=== PATIENT | male | born 1965 | race Caucasian/White ===

== ENCOUNTER 2019-06-23 13:49 | Outpatient (CLI) | payer BC, SELFPAY ==
--- NOTE | ~2019-06-23 | US_ITS ---
EXAMINATION: US art doppler w press [place] [facility] EXAM DATE: 06/23/2019 15:06 INDICATION: Bilateral foot pain. Diabetes. Foot ulceration. Tingling, numbness. TECHNIQUE: Segmental pressures and plethysmographic and Doppler waveforms of the brachial and lower e xtremity arteries were obtained. There is no prior study for comparison. FINDINGS: Right and left brachial artery pressures of 111 mm Hg and 110 mm Hg, respectively, are concordant (no rmal difference <= 30 mmHg). The right and left thigh-brachial pressure indices are 1.59, 1.41, resp ectively (normal > 1.2). RIGHT LEG: The ankle-brachial index (YELENA) is 1.19 (normal >= 0.9-1). The great toe-brachial index (TBI) is 1.05 (normal >= 0.65). The lower extremity ratios, segmental pressure gradients as follows; Proximal superficial femoral artery:- 1.59 (176 mmHg). Distal superficial femoral artery: ----- 1.65 (183 mmHg). Popliteal: 1.28 (142 mmHg). Dorsalis pedis: 1.12 (124 mmHg). Posterior tibial: 1.19 (132 mmHg). (Normal gradients <= 20-30 mmHg between adjacent levels on the same leg or the same levels on the two legs). Arterial waveforms are biphasic. LEFT LEG: The ankle-brachial index (YELENA) is 1.32 (normal >= 0.9-1). The great toe-brachial index (TBI) is 0.78 (normal >= 0.65). The lower extremity ratios, segmental pressure gradients as follows; Proximal superficial femoral artery:- 1.41 (156 mmHg). Distal superficial femoral artery: ----- 1.56 (173 mmHg). Popliteal: 1.54 (171 mmHg). Dorsalis pedis: 1.14 (126 mmHg). Posterior tibial: 1.32 (146 mmHg). (Normal gradients <= 20-30 mmHg between adjacent levels on the same leg or the same levels on the two legs). Arterial waveforms are biphasic. IMPRESSION: 1. Right ankle-brachial index 1.19, normal. 2. Left ankle-brachial index 1.32, normal. 3. Segmental pressures as above. Reviewed, dictated and finalized at location A.
== END 2019-06-23 13:50 | disposition home or self-care (01) ==
PROVIDERS: Visit Provider Internal Medicine
DX: M79.672 Pain in left foot (principal); M79.671 Pain in right foot
CPT/HCPCS: 93923

== ENCOUNTER 2019-12-10 08:00 | Outpatient (RCR) | payer BC, SELFPAY ==
--- NOTE | 2019-11-03 10:00 | PTOPEVAL ---
INITIAL PHYSICAL THERAPY EVALUATION and PLAN OF CARE Thank you for referring Rajan Santoro to [facility]. Romulo will be seen in PT 2x/wk x 6 wks. Please review, sign, date and return this plan of care SUSAN. I agree with and certify that the following plan of care is medically necessary. Referring Physician Date Admitting Provider: Attending Provider: PHYSICIAN NOT ON STAFF Referring Provider: *PT Outpatient Evaluation Start: 11/03/19 08:19 Freq: Status: Active Protocol: Document 11/03/19 08:10 GRIFFIN (Rec: 11/03/19 09:42 GRIFFIN [id number]) Therapy Assessment Status Assessment Status Assessment Status Evaluation Outpatient Past Medical History Past Medical History Source of Past Medical History Patient Neurological History Hx Migraine Yes Cardiovascular History Hx Hypercholesterolemia Yes Hx Hypertension Yes Respiratory History Hx Other Respiratory Disorders Yes: spring seasonal allergies Gastrointestinal History Hx Gastroesophageal Reflux Disease Yes Genitourinary History Hx Genitourinary Disorders No Significant History Musculoskeletal History Hx Arthritis Yes: bilat foot & ankle R>L, bilat thumbs & hands Hx Fractures Yes: multiple Hx Spinal Surgery Yes: laminectomy-lumbar spine Hx Other Musculoskeletal Disorders Yes: bilat carpal tunnel surger Endocrine History Hx Diabetes Yes Evaluation Information Problem Diagnosis OA R foot and ankle Onset at least 10 yrs ago, worse last 1 1/2 yrs Subjective Information Retired from [employer] end of Query Text:As Reported By Patient/ 2018 - always had to wear [employer] steel toe shoes - retired due to the status of the [employer] situation Increased pain mid/dorsal aspect of R foot, runs laterally, also at R [employer] MTP jt, up into ankle - will alter gait pattern in regards to this pain - then will cause plantarfascial pain as well as lateral foot pain. Used to perform [employer] - still performs but ~ 1 1/2 yr ago inability to balance on R foot with skills, unable to jump, run, put impact onto R foot. The R foot pain can wake him up or if foot is caught by
--- NOTE | 2019-11-16 08:42 | PCPTNOTE ---
Patient did not show up for scheduled appointment this date; called and left voicemail for reminder on next appointment.
--- NOTE | 2019-11-26 09:58 | PCPTNOTE ---
Patient did not show up for scheduled appointment this date.
--- NOTE | 2019-12-15 08:44 | PCPTNOTE ---
Patient did not show up for scheduled appointment this date. Today was his re-eval appointment. Will await to see if he reschedules this appointment.
--- NOTE | 2020-01-07 07:31 | PCPTNOTE ---
PHYSICAL THERAPY DISCHARGE NOTE Admitting Provider: Attending Provider: PHYSICIAN NOT ON STAFF Patient:Rajan Santoro Date of :1965 Romulo has not returned for any further treatments since 12/10/2019, therefore he will be discharged at this time. Romulo?s initial visit was on 11/03/2019 08:00 and he had a total of 9 visits. He did not show for his 12/15/2019 re-evaluation. The goals have been partially met. Increase mobility with tarsal bones and improved balance abilities were achieved, but pain levels did not decrease. Thank you for referring Romulo to [facility]. Please review, sign, date and return this discharge summary SUSAN. I have been updated about Romulo's current status and I agree with discharge from the above service at this time. Referring Physician Date
== END 2020-01-18 09:42 | disposition home or self-care (01) ==
LOC: ANHPT 08:00
DX: M19.071 Primary osteoarthritis, right ankle and foot (principal)
CPT/HCPCS: 97022; 97110; 97140; 97161

== ENCOUNTER 2021-02-10 16:30 | Emergency (ER) | payer BC, SELFPAY ==
[2021-02-10 16:41] VITALS: BP 119/89; PULSE 133; RESP 20; TEMP 36.6; O2SAT 98
--- NOTE | 2021-02-10 16:51 | ED.HEATRA ---
HPI - Head Injury General Chief complaint: Head Injury Stated complaint: head injury Time Seen by Provider: 02/10/21 16:52 Source: patient, RN notes reviewed and old records reviewed Mode of arrival: ambulatory Limitations: no limitations History of Present Illness HPI Narrative: 55 year old male presents to [facility] with complaints of standing up at home this afternoon and becoming lightheaded and he fell hitting his head on the base board causing 7cm laceration to the right posterior aspect of his head. Patient states that he thinks he only briefly had any LOC. Patient states that he has had some dizziness with positional changes at intervals for some time but has never discussed this with his physician which he saw about a week ago. Patient states that he has lost quite a bit of weight over the past year or so and he is now only on Metformin for his diabetes. He states that he is suppose to have right hip replacement in the first part of March at [facility] and he has a lot of pain in his right hip especially since he has had to go off of his Indomethacin. Orthostatic blood pressures and heart rates performed with lying BP 108/71 HR 94, sitting BP 106/76 HR 103, standing BP 95/76 HR 159. Complaint: head injury and fall Related Data Home Medications Medication Instructions Recorded Confirmed atorvastatin 20 mg PO DAILY 02/10/21 02/10/21 ciclopirox TOPICAL 02/10/21 duloxetine 60 mg PO DAILY 02/10/21 02/10/21 gabapentin 300 mg PO DAILY 02/10/21 02/10/21 indomethacin 50 mg PO DAILY 02/10/21 02/10/21 metformin 1,000 mg PO DAILY 02/10/21 02/10/21 olmesartan 40 mg PO DAILY 02/10/21 02/10/21 pantoprazole 40 mg PO DAILY 02/10/21 02/10/21 pregabalin 150 mg PO DAILY 02/10/21 02/10/21 sildenafil 100 mg PO DAILY 02/10/21 02/10/21 sumatriptan succinate 100 mg PO DAILY 02/10/21 02/10/21 testosterone cypionate 200 mg SUBCUT 02/10/21 topiramate 200 mg PO DAILY 02/10/21 02/10/21 tramadol 50 mg PO HS 02/10/21 02/10/21 Allergies Allergy/AdvReac Type Severity Reaction Status Date / Time No Known Allergies Allergy Unverified 02/10/21 16:52 Review of Systems Review of Systems: CONSTITUTIONAL: Denies fever, chills, or sweats. EYES: Denies visual changes, redness, or discharge. ENT: Denies rhinorrhea, congestion, sore throat, or otalgia. CARDIOVASCULAR: Denies chest pain, palpitations, or edema. RESPIRATORY: Denies cough or dyspnea. GASTROINTESTINAL: Denies abdominal pain, nausea, vomiting, or diarrhea. GENITOURINARY: Denies dysuria or hematuria. SKIN: Denies rash or itching.7cm laceration to right posterior scalp MUSCULOSKELETAL: Denies back pain, positive for right hip joint pain, or myalgia. NEUROLOGIC: Positive headache, denies any numbness, or weakness, reports intermittent episodes of lightheadedness, dizziness with position changes PSYCHIATRIC: Positive for past history of anxiety or depression. All systems reviewed & are unremarkable except as noted in HPI and below PMFSH Past Medical History Medical History (Updated 02/11/21 @ 14:03 by Silvina Leo NP) Anxiety Arthritis Diabetes Hypertension Migraine Sleep apnea with use of continuous positive airway pressure (CPAP) Surgical History Surgical History (Updated 02/11/21 @ 14:02 by Silvina Leo NP) History of back surgery History of repair of right rotator cuff History of umbilical hernia repair Family History Family History (Updated 02/10/21 @ 19:14 by Silvina Leo NP) Father Heart disease Diabetes mellitus Social History Social History (Updated 02/11/21 @ 14:01 by Sivlina Leo NP) Smoking status: Former smoker Tobacco type: cigarettes Additional smoking assessment comments: quit 1994 Alcohol intake: never Alcohol use details: rare social Substance use: never Living arrangements: with family Gender identity (if verbalized by the patient): Male Comments At time of signature, agree with nursing past medical, surgica
--- NOTE | 2021-02-10 17:08 | ECG_ITS ---
Measurements Intervals [place] Rate: 96 P: 30 OK: 172 QRS: -14 QRSD: 81 T: 51 QT: 318 QTc: 402 Interpretive Statements SINUS RHYTHM NORMAL ECG Electronically Signed On 02-11-2021 7:41:13 CDT by Hank Farmer D.O.
[2021-02-10 17:09] LABS: Glucose Point of Care 104 mg/dl (65-105)
[2021-02-10 17:28] VITALS: BP 108/71; PULSE 94
[2021-02-10 17:29] VITALS: BP 106/76; PULSE 103
[2021-02-10 17:30] VITALS: BP 95/76; PULSE 159
== END 2021-02-10 17:57 | disposition left against medical advice (07) ==
PROVIDERS: Emergency Provider Registered Nurse; PCP Internal Medicine
DX: S01.01XA Laceration without foreign body of scalp, initial encounter (principal); W19.XXXA Unspecified fall, initial encounter; Z87.891 Personal history of nicotine dependence; M19.90 Unspecified osteoarthritis, unspecified site; E11.9 Type 2 diabetes mellitus without complications; I10 Essential (primary) hypertension; G47.30 Sleep apnea, unspecified; Z79.84 Long term (current) use of oral hypoglycemic drugs
CPT/HCPCS: 12002; 82948; 93005; 99213; G0463

== ENCOUNTER → 2021-08-30 10:10 | Outpatient (CLI) | payer BC, SELFPAY ==
--- NOTE | ~2021-08-30 | MR_ITS ---
EXAMINATION: MR lumbar spine wo/w con DATE: 08/30/2021 11:30 INDICATION: Lumbar radiculopathy TECHNIQUE: Magnetic resonance imaging (MRI) of the lumbar spine was performed without and with 20 mL Multihance intravenous contrast. Sequences included sagittal T2-weighted FSE, sagittal T2-weighted FS FSE, and sagittal and axial T1-weighted FSE. Postcontrast sequences included axial T2-weighted FSE, sagittal T1-weighted FSE, and axial and sagittal T1-weighted FS FSE. COMPARISON: None FINDINGS: 1-2 mm anterolisthesis L4 on L5 and 3 mm retrolisthesis L5 on S1. Vertebral body heights are normal. Mild fibrovascular degenerative endplate changes at the inferior endplate of L4 and L5. Marrow signal is otherwise normal.. Mild disc height loss at L3-L4, moderate disc height loss at T11-T12 and L4-L5 , severe disc height loss at L5-S1. There are annular fissures at each of these level. The conus medu llaris terminates at T12-L1. There is normal signal in the caudal spinal cord. Paravertebral soft tis sues are unremarkable. No abnormally enhancing lesions identified. The following disc levels are spec ifically discussed: T12-L1: The disc does not extend beyond the endplate margin. There is mild bilateral facet joint oste oarthritis. There is no neural foraminal stenosis. There is no central canal stenosis. L1-L2: The disc does not extend beyond the endplate margin. There is mild bilateral facet joint osteo arthritis. There is no neural foraminal stenosis. There is no central canal stenosis. L2-L3: The disc does not extend beyond the endplate margin. There is mild bilateral facet joint osteo arthritis. There is no neural foraminal stenosis. There is no central canal stenosis. L3-L4: Disc is bulging, eccentric to the right. There is mild bilateral facet joint osteoarthritis. T here is mild left and mild to moderate right neural foraminal stenosis. There is mild central canal s tenosis along with mild narrowing of the right lateral recess.. L4-L5: Mild disc diffuse disc bulge with superimposed annular fissure and central disc extrusion whic h measures 11 mm left to right, 8 mm AP and 13 mm craniocaudally. There is severe bilateral facet scooby nt osteoarthritis. There is mild to moderate left and moderate right neural foraminal stenosis. There is moderate to severe central canal stenosis. L5-S1: Disc extrusion extending from foraminal zone to foraminal zone with disc material extending up to 3 mm caudal to the level of the superior endplate of S1. There is mild bilateral facet joint oste oarthritis. There is moderate bilateral neural foraminal stenosis. There appears to been a prior righ t hemilaminotomy with resection of the right ligament flavum. There is no central canal stenosis. The re is however narrowing of the left and right lateral recesses with some mass effect upon the evie ing bilateral S1 nerve roots. IMPRESSION: 1. Severe lower lumbar spondylosis. Reviewed, dictated and finalized at location A.
[2021-08-30 11:09] LABS: Estimated Glomerular Filt Rate 53
== END ==
PROVIDERS: PCP Internal Medicine
DX: M47.25 Other spondylosis with radiculopathy, thoracolumbar region (principal); M48.05 Spinal stenosis, thoracolumbar region; M47.27 Other spondylosis with radiculopathy, lumbosacral region; M48.07 Spinal stenosis, lumbosacral region
CPT/HCPCS: 72158; A9577

== ENCOUNTER 2022-03-19 16:25 | Outpatient (CLI) | payer BC, SELFPAY ==
--- NOTE | ~2022-03-19 | CT_ITS ---
EXAMINATION: CT lumbar spine wo con DATE: 03/19/2022 16:51 INDICATION: Lumbar radiculopathy. TECHNIQUE: Computed tomography (CT) of the lumbar spine was performed without intravenous contrast. A utomated exposure control and iterative reconstruction technique were employed. The dose-length produ ct was 1374.57 mGy-cm. COMPARISON: Lumbar spine MRI 08/30/2021 FINDINGS: There are stones in the visualized portions of the kidneys measuring up to 4 mm on the left . There is an 18 mm cyst in left kidney. There is a 2.4 x 1.2 cm thick-walled fluid collection adjace nt to the left external iliac artery and vein. Partially visualized is fat stranding in the left retr operitoneum. There is 5 degrees dextrocurvature of upper lumbar spine. There are changes of anterior and posterior fusion procedures from L4 to S1 with interbody devices and pedicle screws. There is 3 m m anterolisthesis of L4 on L5. There is a Schmorl's node of superior endplate of T12. There is mild c hronic anterior wedging of T11 vertebral body. There is mildly decreased disc height at L3-L4. The fo llowing disc levels are specifically discussed: L1-L2: The disc does not extend beyond the endplate margin. There is mild bilateral facet joint osteo arthritis. There is no neural foraminal stenosis. There is no central canal stenosis. L2-L3: The disc is bulging. There is mild bilateral facet joint osteoarthritis. There is mild bilater al neural foraminal stenosis. There is no central canal stenosis. L3-L4: The disc is bulging. There is mild right and moderate left facet joint osteoarthritis. There i s mild bilateral neural foraminal stenosis. There is mild central canal stenosis. L4-L5: There is mild bilateral facet joint hypertrophy. There is moderate and mild left neural forami nal stenosis. There is no central canal stenosis. L5-S1: There is moderate bilateral facet joint hypertrophy. There is moderate bilateral neural forami nal stenosis. There is mild central canal stenosis. IMPRESSION: 1. 2.4 x 1.2 cm thick-walled fluid collection in the left retroperitoneum abutting the left external iliac artery and vein suspicious for abscess. Consider abdomen and pelvis CT with intravenous contras t. 2. Moderate lumbar spondylosis. 3. Anterior and posterior fusion procedures from L4 to S1. Reviewed, dictated and finalized at location E. L EXPERT IMPRESSION: 1. 2.4 x 1.2 cm thick-walled fluid collection in the left retroperitoneum abutt ing the left external iliac artery and vein suspicious for abscess. Consider ab domen and pelvis CT with intravenous contrast. 2. Moderate lumbar spondylosis. 3. Anterior and posterior fusion procedures from L4 to S1.
== END 2022-03-19 16:26 | disposition home or self-care (01) ==
PROVIDERS: PCP Internal Medicine; Visit Provider Neurological Surgery
DX: M54.16 Radiculopathy, lumbar region (principal); M43.16 Spondylolisthesis, lumbar region; M43.17 Spondylolisthesis, lumbosacral region; Z98.1 Arthrodesis status; R93.5 Abnormal findings on diagnostic imaging of other abdominal regions, including retroperitoneum
CPT/HCPCS: 72131

== ENCOUNTER 2022-05-28 19:42 | Observation (INO) | payer BC, SELFPAY ==
[2022-05-28] VITALS (27 sets, daily range): BP systolic 99–124; BP diastolic 60–82; PULSE 56–74; RESP 6–25; TEMP 36.7; O2SAT 97–100
--- NOTE | ~2022-05-28 | MR_ITS ---
EXAMINATION: MR brain/brain stem wo/w con DATE: 05/29/2022 08:55 INDICATION: Altered mental status. TECHNIQUE: Magnetic resonance imaging (MRI) of the brain and brainstem was performed without and with 20 mL MultiHance intravenous contrast. COMPARISON: Brain MRI 06/29/2010, head CT 05/28/2022 FINDINGS: There is no intracranial hemorrhage, acute infarction, or abnormal intracranial mass lesion . The ventricles are normal in size. There is mild mucosal thickening in the paranasal sinuses. The o rbits are normal. The mastoid air cells are normal. IMPRESSION: 1. Normal brain. Reviewed, dictated and finalized at location A. GER PR[employer]CE IMPRESSION: 1. Normal brain.
--- NOTE | ~2022-05-28 | XR_ITS ---
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 RESULT: Lines, tubes, and devices: None. Lungs and pleura: Low volumes with crowding. Otherwise clear. Cardiomediastinal silhouette: Unremarkable. Other: No acute osseous or upper abdominal finding. IMPRESSION: No acute cardiopulmonary process. Reviewed, dictated and finalized at location K. OILER
--- NOTE | ~2022-05-28 | CT_ITS ---
EXAMINATION: CT brain wo con DATE: 05/28/2022 20:41 INDICATION: seizure, altered mental status . TECHNIQUE: Computed tomography (CT) of the head was performed without intravenous contrast. The mA wa s adjusted according to patient size. Iterative reconstruction technique was employed. The dose-lengt h product was 605.33 mGy-cm. COMPARISON: 08/05/2015. FINDINGS: No acute intracranial hemorrhage or extra-axial fluid collection. No hydrocephalus, mass, or herniation. No acute ischemic infarct. Unremarkable dural venous sinus attenuation. No acute osseous abnormality. The aerated spaces are clear. IMPRESSION: No acute intracranial process. Reviewed, dictated and finalized at location K. EGE ASSOCIATE
--- NOTE | 2022-05-28 19:51 | ECG_ITS ---
Measurements Intervals [place] Rate: 62 P: 58 RI: 195 QRS: -5 QRSD: 98 T: 32 QT: 379 QTc: 385 Interpretive Statements SINUS RHYTHM MINIMAL VOLTAGE CRITERIA FOR LVH, CONSIDER NORMAL VARIANT [MEETS CRITERIA IN ONE OF: R(aVL), S(V1), R(V5), R(V5/V6)+S(V1)] COMPARED TO ECG 02/10/2021 17:09:33 NO SIGNIFICANT CHANGES Electronically Signed On 05-29-2022 11:26:49 RACKING MACHINE OPERATOR by Brandi Gonzalez M.D.
[2022-05-28 19:53] LABS: Glucose Point of Care 65 mg/dl (65-105)
[2022-05-28] MEDS: DEXTROSE 50% 25 GM/50 ML SYRINGE IV PUSH (20:04)
[2022-05-28 20:16] LABS: Basophils Percent Auto 0.7 % (0.2-1.2); Eosinophils Absolute Auto 0.3 K/mm3 (0-0.3); Eosinophils Percent Auto 5.1 % (0-4.4); Hematocrit 34.4 % (42.0-52.0); Hemoglobin 11.4 g/dL (14.0-18.0); Immature Granulocyte Absolute 0.01 K/mm3 (0.00-0.031); Immature Granulocyte Percent A 0.2 % (0-0.5); Lymphocytes Absolute Auto 2.37 K/mm3 (0.9-3.2); Lymphocytes Percent Auto 41.9 % (18.3-44.2); Mean Corpuscular HGB Conc 33.1 g/dl (32-36); Mean Corpuscular Hemoglobin 32.9 pg (26-34); Mean Corpuscular Volume 99.1 fl (80-100); Mean Platelet Volume 10.7 fl (7.4-10.4); Monocytes Absolute Auto 0.5 K/mm3 (0.1-0.6); Neutrophils Absolute Auto 2.4 K/mm3 (1.3-6.7); Neutrophils Percent Auto 43.1 % (45.5-73.1); Platelet Count Result 188 k/mm3 (150-375); Red Blood Count 3.47 M/mm3 (4.6-6.20); White Blood Count 5.7 K/mm3 (4.5-10.0)
[2022-05-28] MEDS: SODIUM CHLORIDE 0.9% IV 1,000 ML 999 ML IV CONT (20:20)
[2022-05-28 20:24] LABS: Alanine Aminotransferase 20 U/L (6-50); Albumin Level 4.5 g/dL (3.5-5.1); Alkaline Phosphatase 68 U/L (38-126); Anion Gap 10 mmol/L (8-16); Aspartate Amino Transferase 28 U/L (17-59); Bilirubin,Total 0.3 mg/dL (0.2-1.3); Blood Urea Nitrogen 22 mg/dL (9-20); Calcium 8.4 mg/dL (8.4-10.2); Carbon Dioxide 23 mmol/L (22-30); Chloride 105 mmol/L (98-107); Estimated CRCL calculation 59 ml/min; Estimated Glomerular Filt Rate 48; Glucose 68 mg/dL (65-110); Magnesium 1.8 mg/dL (1.6-2.3); Sodium 138 mmol/L (137-145)
[2022-05-28 20:25] LABS: Ethanol 200 mg/dL (<10)
[2022-05-28 20:27] LABS: INR 1.1; Prothrombin Time 13.9 Seconds (11.1-14.7)
[2022-05-28 20:28] LABS: Partial Thromboplastin Time 32.6 SECONDS (22.3-36.8)
[2022-05-28 20:33] LABS: Lactic Acid Reflex 2.1 mmol/L (0.7-2.0)
[2022-05-28 20:36] LABS: Troponin I < 0.012 ng/mL (0.000-0.034)
[2022-05-28 20:52] LABS: Glucose Point of Care 78 mg/dl (65-105)
[2022-05-28] MEDS: DEXTROSE 5%/0.9% SOD CHL 1,000 ML 100 ML IV CONT (20:56)
[2022-05-28 20:59] LABS: Influenza A QL RT-PCR Negative (Negative); Influenza B QL RT-PCR Negative (Negative); SARS-CoV-2 RNA PCR Negative
[2022-05-28 21:23] LABS: Appearance Urine Clear (Clear); Bilirubin Urine Negative (Negative); Blood Urine Trace-lysed (Negative); Color Urine Light Yellow (Yellow); Glucose Urine UA Negative (Negative); Ketones Urine Negative (Negative); Leukocyte Esterase Ur Negative LEU/UL (Negative); Nitrate Urine Negative (Negative); Protein Urine Negative (Negative); Specific Grav Ur <= 1.005 (1.001-1.035); Urobilinogen Urine 0.2 mg/dL (<2.0)
[2022-05-28 21:37] LABS: Amphetamine Screen Urine Negative (Negative); Barbiturate Screen Urine Positive (Negative); Benzodiazepines Screen Urine Negative (Negative); Cannabinoid Screen Urine Negative (Negative); Cocaine Screen Urine Negative (Negative); Methadone Screen Urine Negative (Negative); Opiate Screen Urine Negative (Negative); Phencyclidine Screen Urine Negative (Negative)
[2022-05-28 21:39] LABS: Mucus Urine Rare /lpf; RBC Urine 0-2 /hpf (0-2); WBC Urine 0-3 /hpf
[2022-05-28 21:40] LABS: Add Urine Microscopic? YES
[2022-05-28 21:47] LABS: Glucose Point of Care 65 mg/dl (65-105)
--- NOTE | 2022-05-28 21:52 | PC.NURSE ---
Per verbal order per Lipsmeyer, titrate D5NS at 150ml per hour at this time.
--- NOTE | 2022-05-28 22:09 | ED.GENADULT ---
HPI - General Adult General Chief complaint: Seizure Stated complaint: POSSIBLE SEIZURE Time Seen by Provider: 05/28/22 19:55 History of Present Illness HPI narrative: Patient is a 56-year-old gentleman who presents the emergency department with a chief complaint of possible seizure. Patient reports that he has had seizures since he had back surgery at [place]. Patient reports that he was outside and per EMS patient was witnessed to collapse and had shaking at the scene EMS was called and transported the patient and acting in a postictal type state. Upon arrival to emergency department patient is able to answer some basic questions and has had episodes of intermittent confusion in the emergency department. Related Data Home Medications Medication Instructions Recorded Confirmed atorvastatin 20 mg tablet 20 mg PO DAILY 02/10/21 02/10/21 ciclopirox 8 % topical solution topical 02/10/21 duloxetine 60 mg capsule,delayed 60 mg PO DAILY 02/10/21 02/10/21 release gabapentin 300 mg capsule 300 mg PO DAILY 02/10/21 02/10/21 indomethacin 50 mg capsule 50 mg PO DAILY 02/10/21 02/10/21 metformin 1,000 mg tablet 1,000 mg PO DAILY 02/10/21 02/10/21 olmesartan 40 mg tablet 40 mg PO DAILY 02/10/21 02/10/21 pantoprazole 40 mg tablet,delayed 40 mg PO DAILY 02/10/21 02/10/21 release pregabalin 150 mg capsule 150 mg PO DAILY 02/10/21 02/10/21 sildenafil 100 mg tablet 100 mg PO DAILY 02/10/21 02/10/21 sumatriptan succinate 100 mg tablet 100 mg PO DAILY 02/10/21 02/10/21 testosterone cypionate 200 mg/mL 200 mg subcut 02/10/21 intramuscular oil topiramate 200 mg tablet 200 mg PO DAILY 02/10/21 02/10/21 tramadol 50 mg tablet 50 mg PO HS 02/10/21 02/10/21 Allergies Allergy/AdvReac Type Severity Reaction Status Date / Time No Known Allergies Allergy Verified 05/28/22 19:50 Review of Systems Review of Systems: A 10 system review of systems was completed on the patient and is negative except for what is stated in the HPI. Nursing and ancillary documentation was reviewed. [facility] Past Medical History Medical History (Updated 05/29/22 @ 00:07 by Reynaldo Martinez MD) Anxiety Arthritis Diabetes Hypertension Migraine Sleep apnea with use of continuous positive airway pressure (CPAP) Surgical History Surgical History History of back surgery History of repair of right rotator cuff History of umbilical hernia repair Family History Family History Father Heart disease Diabetes mellitus Social History Social History Smoking status: Former smoker Tobacco type: cigarettes Additional smoking assessment comments: quit 1994 Alcohol intake: never Alcohol use details: rare social Substance use: never Living arrangements: with family Gender identity (if verbalized by the patient): Male Exam Narrative: GENERAL: Well-appearing, well-nourished, and in no acute distress. HEAD: Normocephalic, atraumatic. EYES: PERRLA and EOMI. ENT: Nares clear, no rhinorrhea or epistaxis. Mucous membranes moist. NECK: Supple. CHEST: Clear to auscultation. No respiratory distress. HEART: Regular rate and rhythm. No murmur heard. Normal peripheral pulses. ABDOMEN: Soft, nontender, nondistended, normal active bowel sounds. EXTREMITIES: Normal range of motion. No edema. SKIN: Warm, dry, no rash. NEURO: No focal deficits. Alert and oriented x2. PSYCH: Normal mood and affect. Course Vital Signs Vital signs: Vital Signs Pulse Rate 67 05/28/22 19:44 Respiratory Rate 20 05/28/22 19:44 Blood Pressure 109/61 05/28/22 19:44 Pulse Oximetry 98 05/28/22 19:44 Oxygen Delivery Room Air 05/28/22 19:44 Temperature 36.7 C 05/28/22 19:52 Pulse Rate 64 05/28/22 22:44 Respiratory Rate 25 H 05/28/22 22:44 Blood Pressure 120/7
[2022-05-28 22:49] LABS: Glucose Point of Care 71 mg/dl (65-105)
[2022-05-28 23:22] LABS: Reflex Lactic Acid Yes or No Add Lactic
[2022-05-28 23:50] LABS: Glucose Point of Care 66 mg/dl (65-105)
--- NOTE | 2022-05-28 23:50 | PM.IMHP ---
H&P: HPI History of Present Illness Date/Time: 05/28/22 23:50 Chief Complaint: 56 years old male with past medical history of seizure on Vimpat chronic back pain presented to the hospital with 1 episode of seizure patient was witnessed that was collapsed to the ground was having shaking movement EMS was called patient had confusion post the episode of shaking consistent with his previous history of seizure at the ER urine drug screen was positive CT scan of the head was negative patient was admitted to the hospital for further evaluation and treatment of recurrent seizure patient was started on IV Keppra Patient recently had back surgery at [facility] Review of Systems Review of Systems: 12 system review was done negative except above [facility] Past Medical History Medical History (Updated 05/29/22 @ 00:39 by Jeyson Huston MD) Anxiety Arthritis Diabetes Hypertension Migraine Sleep apnea with use of continuous positive airway pressure (CPAP) Surgical History Surgical History History of back surgery History of repair of right rotator cuff History of umbilical hernia repair Family History Family History Father Heart disease Diabetes mellitus Social History Social History Smoking status: Former smoker Tobacco type: cigarettes Additional smoking assessment comments: quit 1994 Alcohol intake: never Alcohol use details: rare social Substance use: never Living arrangements: with family Gender identity (if verbalized by the patient): Male Meds Home Medications and Allergies Home Medications Medication Instructions Recorded Confirmed Type atorvastatin 20 mg tablet 20 mg PO DAILY 02/10/21 02/10/21 History ciclopirox 8 % topical solution topical 02/10/21 History duloxetine 60 mg capsule,delayed 60 mg PO DAILY 02/10/21 02/10/21 History release gabapentin 300 mg capsule 300 mg PO DAILY 02/10/21 02/10/21 History indomethacin 50 mg capsule 50 mg PO DAILY 02/10/21 02/10/21 History metformin 1,000 mg tablet 1,000 mg PO DAILY 02/10/21 02/10/21 History olmesartan 40 mg tablet 40 mg PO DAILY 02/10/21 02/10/21 History pantoprazole 40 mg tablet,delayed 40 mg PO DAILY 02/10/21 02/10/21 History release pregabalin 150 mg capsule 150 mg PO DAILY 02/10/21 02/10/21 History sildenafil 100 mg tablet 100 mg PO DAILY 02/10/21 02/10/21 History sumatriptan succinate 100 mg tablet 100 mg PO DAILY 02/10/21 02/10/21 History testosterone cypionate 200 mg/mL 200 mg subcut 02/10/21 History intramuscular oil topiramate 200 mg tablet 200 mg PO DAILY 02/10/21 02/10/21 History tramadol 50 mg tablet 50 mg PO HS 02/10/21 02/10/21 History Allergies Allergy/AdvReac Type Severity Reaction Status Date / Time No Known Allergies Allergy Verified 05/28/22 19:50 Vital Signs Vital Signs - 24 hr 05/28/22 19:44 05/28/22 19:51 05/28/22 19:52 Temperature 98.1 F Pulse Rate 67 66 Respiratory Rate 20 Blood Pressure 109/61 Pulse Oximetry 98 Oxygen Delivery Room Air 05/28/22 19:52 05/28/22 19:57 05/28/22 20:00 Temperature Pulse Rate 67 65 Respiratory Rate 14 19 Blood Pressure Pulse Oximetry 100 100 100 Oxygen Delivery Room Air 05/28/22 20:15 05/28/22 20:17 05/28/22 20:30 Temperature Pulse Rate 74 60 59 L Respiratory Rate 14 14 13 Blood Pressure 117/68 Pulse Oximetry 100 100 99 Oxygen Delivery 05/28/22 20:47 05/28/22 20:52 05/28/22 21:01 Temperature Pulse Rate 70 67 60 Respiratory Rate 12 11 L 7 L Blood Pressure 124/82 Pulse Oximetry 99 99 99 Oxygen Delivery 05/28/22 21:02 05/28/22 21:15 05/28/22 21:20 Temperature Pulse Rate 64 61 62 Respiratory Rate 7 L 13 6 L Blood Pressure 99/60 L 109/71 Pulse Oximetry 99 98 99 Oxygen Delivery 05/28/22 21:30 05/16
[2022-05-29] VITALS (15 sets, daily range): BP systolic 107–117; BP diastolic 62–80; PULSE 53–79; RESP 9–30; TEMP 36.9; O2SAT 96–100; BMI 37.3
[2022-05-29 00:09] LABS: Lactic Acid 1.7 mmol/L (0.7-2.0)
[2022-05-29] MEDS: DEXTROSE 50% 25 GM/50 ML SYRINGE IV PUSH (00:14)
[2022-05-29 00:15] LABS: Magnesium 1.9 mg/dL (1.6-2.3)
[2022-05-29 00:16] LABS: Ammonia < 9 umol/L (9-30)
[2022-05-29 00:56] LABS: Glucose Point of Care 74 mg/dl (65-105)
[2022-05-29 01:22] LABS: Folic Acid 6.7 ng/mL (2.76->20)
--- NOTE | 2022-05-29 01:52 | ADMGEN ---
This patient, Rajan Santoro, was admitted to Medical Room 253-01. Patient/family oriented to hospital policies and general routines including ID bracelet, bed and alarms, visiting hours, pain management, procedures, bathroom and other care routines, personal items, smoking policy, room service/diet, and visiting hours. Information on how to activate the Rapid Response Team has been discussed. Patient/Family are encouraged to report perceived risks to care and to ask questions if they do not understand what they are told or what they should do. arrived at 152
[2022-05-29] MEDS: DEXTROSE 5%/0.9% SOD CHL 1,000 ML 100 ML IV CONT (01:59)
--- NOTE | 2022-05-29 02:59 | PC.NURSE ---
attempted to verify medication with pt unable to verify at this time, pt became frustrated.
--- NOTE | 2022-05-29 03:03 | PC.NURSE ---
pt states [facility] and can not drive and can not use other pharmacies. 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 Unable to verify pharmacy at this time.
[2022-05-29] MEDS: THIAMINE HCL 100 MG TABLET PO ×2 (04:06→08:08)
[2022-05-29 05:46] LABS: Glucose Point of Care 92 mg/dl (65-105)
[2022-05-29 06:19] LABS: Basophils Percent Auto 0.6 % (0.2-1.2); Eosinophils Absolute Auto 0.2 K/mm3 (0-0.3); Eosinophils Percent Auto 4.1 % (0-4.4); Hematocrit 31.7 % (42.0-52.0); Hemoglobin 10.4 g/dL (14.0-18.0); Immature Granulocyte Absolute 0.01 K/mm3 (0.00-0.031); Immature Granulocyte Percent A 0.2 % (0-0.5); Lymphocytes Absolute Auto 1.19 K/mm3 (0.9-3.2); Lymphocytes Percent Auto 25.8 % (18.3-44.2); Mean Corpuscular HGB Conc 32.8 g/dl (32-36); Mean Corpuscular Hemoglobin 32.8 pg (26-34); Mean Platelet Volume 11.1 fl (7.4-10.4); Monocytes Absolute Auto 0.4 K/mm3 (0.1-0.6); Monocytes Percent Auto 9.3 % (2.6-8.5); Neutrophils Absolute Auto 2.8 K/mm3 (1.3-6.7); Platelet Count Result 162 k/mm3 (150-375); Red Blood Count 3.17 M/mm3 (4.6-6.20); Red Cell Distribution Width 14.1 % (11.5-14.5); White Blood Count 4.6 K/mm3 (4.5-10.0)
[2022-05-29 06:38] LABS: Alanine Aminotransferase 18 U/L (6-50); Albumin Level 3.7 g/dL (3.5-5.1); Alkaline Phosphatase 57 U/L (38-126); Anion Gap 6 mmol/L (8-16); Aspartate Amino Transferase 23 U/L (17-59); Bilirubin,Total 0.3 mg/dL (0.2-1.3); Blood Urea Nitrogen 18 mg/dL (9-20); Calcium 7.9 mg/dL (8.4-10.2); Carbon Dioxide 21 mmol/L (22-30); Chloride 114 mmol/L (98-107); Estimated CRCL calculation 83 ml/min; Estimated Glomerular Filt Rate > 60; Glucose 89 mg/dL (65-110); Potassium 4.3 mmol/L (3.4-5.0); Sodium 141 mmol/L (137-145)
[2022-05-29] MEDS: FAMOTIDINE 20 MG TABLET PO (08:08)
[2022-05-29] MEDS: HEPARIN SODIUM 5,000 UNITS/ML VIAL 5000 UNITS SUB-Q (08:08)
[2022-05-29] MEDS: FOLIC ACID 1 MG TABLET PO (08:08)
[2022-05-29] MEDS: levETIRAcetam 500MG/NACL 100ML 500 MG/100 ML BAG 400 MG IVPB (08:15)
[2022-05-29 09:09] LABS: Glucose Point of Care 97 mg/dl (65-105)
--- NOTE | 2022-05-29 09:33 | WPDNEURCNPN ---
Assessment and Plan Assessment and plan (1) Seizure: Code(s): R56.9 - Unspecified convulsions Status: Acute (2) Alcohol intoxication: Code(s): F10.929 - Alcohol use, unspecified with intoxication, unspecified Status: Acute (3) Diabetes: Code(s): E11.9 - Type 2 diabetes mellitus without complications Status: Acute (4) Hypertension: Code(s): I10 - Essential (primary) hypertension Status: Acute Plan Rajan Santoro is a 56 year old male with a history of diabetes, KOBE, migraine, hypertension presenting with seizure. Etiology of seizures is unclear, could be provoked by alcohol. - Increase Keppra to 750mg BID - adjusted for weight - No driving until seizure free for 6 months - Follow-up with [facility] Neurologist later this month Consult date: 05/29/22 Reason for consult: Seizure HPI: Rajan Santoro is a 56 year old male with a history of diabetes, KOBE, migraine, hypertension presenting with seizure. Patient presented after having an episode of generalized tonic-clonic movements with associated post-ictal state. EMS was called, it's unclear how long the seizure lasted. Patient reports having seizures since having back surgery at [facility]. He reportedly became septic from UTI, had a seizure. MRI brain reportedly normal at the time per patient. He has been started on Keppra during this admission. He had a normal CT head and normal MRI brain here. UDS was positive for barbiturates (he does take gabapentin/lyrica) and alcohol level was positive as well. Patient reports good compliance to the Keppra. He does not know how many seizures he has had total. He does have follow up scheduled with his Neurologist at [facility] on 06/07. Patient denies any current complaints other than chronic pain. Routine EEG done today which was normal. Review of Systems Constitutional: Constitutional: Reports no additional constitutional complaints Eyes: Eyes: Reports no additional eye complaints ENT: Reports system reviewed and no additional complaints, except as documented Cardiovascular: Cardiovascular: Reports no additional cardiovascular complaints Respiratory: Respiratory: Reports no additional respiratory complaints Gastrointestinal: Gastrointestinal: Reports no additional gastrointestinal complaints Genitourinary: Genitourinary: Reports no additional male genitourinary complaints Musculoskeletal: Musculoskeletal: Reports arthralgias Integumentary/Breasts: Skin/Breast: Reports system reviewed and no additional complaints, except as docu Neurologic: Reports as per HPI Psychiatric: Psychiatric: Reports anxiety PMFSH Past Medical History Medical History Anxiety Arthritis Diabetes Hypertension Migraine Sleep apnea with use of continuous positive airway pressure (CPAP) Surgical History Surgical History History of back surgery History of repair of right rotator cuff History of umbilical hernia repair Family History Family History Father Heart disease Diabetes mellitus Social History Social History Smoking status: Former smoker Tobacco type: cigarettes Additional smoking assessment comments: quit 1994 Alcohol intake: never Drinks per week: 6 Alcohol use details: rare social Substance use: never Lack of Transportation: No Lack of Food: Never True Current Housing: I Have Housing Concerned About Future Housing: No Difficulty Paying Gas/Electric Bills: No Difficulty Paying for Meds: No Currently Unemployed: No Education: Associate Degree Difficulty w/ Childcare or Family Care: No Living arrangements: with family Gender identity (if verbalized by the patient): Male Spiritual care concerns: No Meds Home Medications and Allergies Home Medications
[2022-05-29 11:05] LABS: Glucose Point of Care 111 mg/dl (65-105)
--- NOTE | 2022-05-29 12:47 | WPDNEUROLOGY ---
Neurology EEG Report General Information Date of Study: 05/29/22 TEST Routine EEG DIAGNOSIS Seizure CONDITION OF RECORDING Awake, drowsy, asleep EEG NUMBER [id number] CLINICAL HISTORY Patient reports he started having seizures after complications related to back surgery in January 2022. He is currently admitted after having a breakthrough seizure. EEG DESCRIPTION During the awake state with eyes closed the background consists of 8-9 Hz posterior dominant rhythm which attenuates appropriately with eye opening. The recording is continuous. There is a well developed anterior-posterior gradient. No significant asymmetries of background activities are noted. With drowsiness there is was waxing and waning of the dominant rhythm with eventual replacement by a mixture of beta, alpha, and theta activity. As the patient enters stage II sleep, symmetrical spindles and K-complexes are present. There are no epileptiform discharges or seizures during this recording. Hyperventilation and photic stimulation were not performed. IMPRESSION This is a normal routine EEG recorded in awake and asleep states. There are no electrographic seizures identified, nor are there any epileptiform discharges. Please note that a normal EEG cannot exclude a seizure disorder. Clinical correlation is recommended.
[2022-05-29 12:49] LABS: Glucose Point of Care 98 mg/dl (65-105)
--- NOTE | 2022-05-29 12:54 | PM.DS ---
DS: Admitting Diagnosis Discharge Date seizure Admitting Diagnosis see below DS: Discharge Diagnosis Discharge Diagnosis (1) Seizure: Code(s): R56.9 - Unspecified convulsions Status: Acute (2) Sleep apnea with use of continuous positive airway pressure (CPAP): Code(s): G47.30 - Sleep apnea, unspecified Status: Acute (3) Hypertension: Code(s): I10 - Essential (primary) hypertension Status: Acute (4) Anxiety: Code(s): F41.9 - Anxiety disorder, unspecified Status: Acute (5) Diabetes: Code(s): E11.9 - Type 2 diabetes mellitus without complications Status: Acute (6) Alcohol intoxication: Code(s): F10.929 - Alcohol use, unspecified with intoxication, unspecified Status: Acute DS: Summary Hospital Course Hospital Course: Patient is a 56-year-old male with a history of seizures who presented to the emergency room for witnessed fall and seizure. patient states that he was diagnosed with seizures back in January 2022 after a back surgery. He had a MRI of the brain at that time which showed no structural abnormality. He continued on Keppra and has not missed any doses. The night of his seizure he had a couple of beers well sitting out on the deck. He says he drinks a few beers maybe once a week. He was post-ictal on transport but has been back to his baseline since. Labs, EEG, brain MRI and imaging unrevealing. No signs of infection or injury. Suspect alcohol may have caused the seizure and pt is going to try non-alcoholic beer in the future. Neurology was consulted and his keppra dose increased. patient was educated not to drive or soak in a bathtub or work off the ground due to his seizures for 6 months and he verbalized understanding. He has an appointment with [facility] tomorrow for an MRI and his brother is going to take him. He is also going to follow-up with neurology at [facility]. He was educated about the worrisome signs and symptoms to come back to the emergency room for and was discharged in stable condition. Time Spent with Patient Time attestation: Total time spent providing and/or coordinating discharge services: 45 minutes Time spent: Greater than 30 minutes Exam Narrative: General: Well developed well nourished patient in NAD HEENT: normocephalic Neck: supple, no pain to midline Neuro: Alert and oriented x4. CN2-12 intact. Strength 5/5 in UE and LE. Somewhat delayed response when in conversation CV:RRR, tele without abnormal review Resp:CTA Abd: Soft, non distended. No pain to palpation. Positive bowel sounds Extremities: No swelling, erythema, or pain to palpation. DS: Data Data Completed and Pending Labs on day of discharge: Labs from last 24 hours 05/29/22 05/29/22 05/29/22 12:46 11:02 09:05 WBC RBC Hgb Hct MCV MCH MCHC RDW Plt Count MPV Immature Gran % (Auto) Neut % (Auto) Lymph % (Auto) Bee % (Auto) Eos % (Auto) Baso % (Auto) Lymph # (Auto) Bee # (Auto) Eos # (Auto) Baso # (Auto) Abs Immat Gran (auto) Absolute Neuts (auto) Absolute Nucleated RBC Nucleated RBC % PT INR APTT Sodium Potassium Chloride Carbon Dioxide Anion Gap BUN Creatinine Estim Creat Clear Calc Estimated GFR Glucose POC Capillary Glucose 98 111 H 97 Lactic Acid Calcium Magnesium Total Bilirubin AST ALT Alkaline Phosphatase Ammonia Troponin I Total Protein Albumin Vitamin B12 Folate TSH (Reflex) Urine Color Urine Appearance Urine pH Ur Specific [place] Urine Protein Urine Glucose (UA) Urine Ketones Ur Blood (Man) Urine Nitrate Urine Bilirubin Urine Urobilinogen Leukocyte Esterase Rfl Urine RBC Urine WBC Urine Mucus Urine Opiates Screen Urine Methadone Screen Ur Barbiturates Screen Ur Phencyclidine Scrn Ur Amph
== END 2022-05-29 16:15 | disposition home or self-care (01) ==
LOC: ANHED 05-29 00:07 → ANH2MED 05-29 01:47
PROVIDERS: Admitting Provider Internal Medicine; Emergency Provider Emergency Medicine; PCP Internal Medicine; Visit Provider Physician Assistant
DX: R56.9 Unspecified convulsions (principal); R41.82 Altered mental status, unspecified; F41.9 Anxiety disorder, unspecified; M19.90 Unspecified osteoarthritis, unspecified site; E11.649 Type 2 diabetes mellitus with hypoglycemia without coma; I10 Essential (primary) hypertension; G43.909 Migraine, unspecified, not intractable, without status migrainosus; G47.30 Sleep apnea, unspecified; G89.29 Other chronic pain; M54.9 Dorsalgia, unspecified; Z99.89 Dependence on other enabling machines and devices; Z20.822 Contact with and (suspected) exposure to COVID-19; F10.929 Alcohol use, unspecified with intoxication, unspecified; Y90.7 Blood alcohol level of 200-239 mg/100 ml; Z87.891 Personal history of nicotine dependence; Z79.84 Long term (current) use of oral hypoglycemic drugs; Z79.891 Long term (current) use of opiate analgesic; Z79.899 Other long term (current) drug therapy; Z83.3 Family history of diabetes mellitus; Z82.49 Family history of ischemic heart disease and other diseases of the circulatory system
CPT/HCPCS: 36415; 70450; 70553; 71045; 80053; 80307; 81001; 82140; 82607; 82746; 82948; 83605; 83735; 84443; 84484; 85025; 85610; 85730; 87636; 93005; 95816; 96361; 96372; 96374; 96375; 99285; A9270; A9577; G0378; J1644; J1953; J7030; J7042

== ENCOUNTER 2023-03-14 08:15 | Outpatient (RCR) | payer MEDICAID, SELFPAY ==
--- NOTE | 2023-03-05 08:59 | OPREHPOC ---
Outpatient Therapy Plan of Care This is a Multidisciplinary Plan of Care that may contain components documented by all disciplines (PT, OT, and ST.) PT Problem 1 PT Problem #1 Knowledge Deficit PT Goal 1 Goal 1* indep with HEP 2* correct positioning with HEP PT Problem 2 PT Problem #2 Pain PT Goal 1 Goal 1* pt report pain at worst rating of 5/10 2* self assessment Oswestry score of 50% 3* pt report sleeping 3 hours at time PT Problem 3 PT Problem #3 Impaired Strength PT Goal 1 Goal 1* pt stand with equal WB on LE's 2* pt perform trunk stability exercises on mat 20 reps 3* sitting ball exercises with good trunk stability x 15 reps
--- NOTE | 2023-03-05 08:59 | PTOPEVAL1 ---
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; limited lifting, sitting, sleeping and activity due to pain; does light home tasks; does not work outside of home/ not worked since May 2020; try to walk daily with his dog a few blocks every AM; Reported Pain Level Pain Score Self Report Additional Pain Score Comments pain range in the past week: 6-7/10; bilateral lumbar and sacral, radicular into L foot and cannot feel foot and R lateral foot--constant pain that varies in intensity; also has pain and arthritis in R foot reported tolerances: walking/standing 20-30 min; sitting 20-30 min; sleeping 2 hours at time at most Oswestry self assessment 62% limitation in activity increase pain: sit, stand, walking, lifting, home tasks decrease pain: change positions, gabapentin, lyrica heat and ice do not help; Assessment PT Clinical Summary Romulo has the diagnosis of lumbar radicular pain, post op lumbar syndrome. Radicular pain into R and L LE to feet, constant. History includes seizures- is not on meds, R THR and 3 back surgeries. He reports decreased walking, sitting, standing, sleeping and activity tolerance due to pain. Oswestry self assessment score of 62% limitation in activity level. With the evaluation: poor standing position of spine/trunk, pain increase with standing trunk extension; good flexibi
--- NOTE | 2023-03-21 09:04 | PTOPDC ---
Assessment and note entered by Rahel Richardson, PT Discharge Information Assessment PT Clinical Summary PHYSICAL THERAPY DISCHARGE Romulo has received 4 PT sessions, from Mar 05 to . He then called and canceled his remaining appointments. The goals were not addressed. Discharge PT per pt request. Plan of Care PT Services Indicated No
== END 2023-03-21 09:42 | disposition home or self-care (01) ==
LOC: ANHPT 08:15
PROVIDERS: PCP Internal Medicine
DX: M54.16 Radiculopathy, lumbar region (principal); M96.1 Postlaminectomy syndrome, not elsewhere classified
CPT/HCPCS: 97110; 97112; 97161; 97530